=== PATIENT | male | born 1985 | race Caucasian/White ===

== ENCOUNTER 2019-04-09 10:26 | Emergency (ER) | payer SELFPAY | END 2019-04-09 12:15 | disposition left against medical advice (07) | LOC: ER 10:26 | DX: Z53.21 Procedure and treatment not carried out due to patient leaving prior to being seen by health care provider (principal) ==

== ENCOUNTER 2019-09-10 14:50 | Emergency (ER) | payer SELFPAY ==
[2019-09-10 15:11] VITALS: BP 124/75
--- NOTE | 2019-09-10 15:28 | ER Document Report ---
ED General - General Chief Complaint: Diarrhea Stated Complaint: DIARRHEA Notes: Patient is a 34-year-old white male with a recent past medical history of umbilical hernia repair with mesh about 4 weeks ago who presents with chief complaint of diarrhea. He states about 4 days ago he started having some loose brown stool. He reports about 2 episodes per day. Denies any sick contacts or recent travel. Denies any associated abdominal pain. Denies any vomiting or fever. No rash. No known sick contacts. Reports he has had follow-up with the surgeon status post hernia repair and was given all clear. He has been on no medications recently. Denies any known exposures to COVID-19. TRAVEL OUTSIDE OF THE [place] IN LAST 30 DAYS: No Past Medical History - Social History Smoking Status: Unknown if Ever Smoked Family History: Reviewed & Not Pertinent Patient has homicidal ideation: No - Immunizations Hx Diphtheria, Pertussis, Tetanus Vaccination: Yes Review of Systems - Review of Systems Gastrointestinal: Diarrhea -: Yes All other systems reviewed and negative Physical Exam - Vital signs Vitals: Temp Pulse Resp BP Pulse Ox 98.8 F 71 18 124/75 97 09/10/19 15:03 09/10/19 15:03 09/10/19 15:03 09/10/19 15:03 09/10/19 15:03 - General General appearance: Appears well, Alert In distress: None - Respiratory Respiratory status: No respiratory distress Chest status: Nontender Breath sounds: Normal Chest palpation: Normal - Cardiovascular Rhythm: Regular Heart sounds: Normal auscultation - Abdominal Inspection: Other - Supraumbilical incision, well-healed Distension: No distension Bowel sounds: Normal Tenderness: Nontender Organomegaly: No organomegaly - Extremities General upper extremity: Normal inspection, Nontender, Normal color, Normal ROM, Normal temperature General lower extremity: Normal inspection, Nontender, Normal color, Normal ROM, Normal temperature, Normal weight bearing. No: Thi's sign - Neurological Neuro grossly intact: Yes Cognition: Normal Orientation: AAOx4 Daryl Coma Scale Eye Opening: Spontaneous [place] Coma Scale Verbal: Oriented Daryl Coma Scale Motor: Obeys Commands Daryl Coma Scale Total: 15 Speech: Normal - Psychological Associated symptoms: Normal affect, Normal mood - Skin Skin Temperature: Warm Skin Moisture: Dry Skin Color: Normal Course - Re-evaluation Re-evalutation: 09/10/19 15:25 Patient is low risk for COVID-19. He has had no known exposures. His only symptom is diarrhea which could possibly be contributed to COVID-19. His diarrhea is currently manageable and mild. 2 episodes per day, non-watery. No recent travels or fevers. Patient will self monitor. He will continue to use preventative measures as discussed. Encouraged oral hydration. Counseled him regarding the importance of outpatient follow-up and advised to return here any ER immediately with any new, persistent or worsening symptoms. He verbalized understood and agreed. Patient requests note to give to his job stating he is low risk for COVID-19. Given his history and physical and lack of suspected contact, travel or other infectious symptom, this is appropriate and we will give him this note. - Vital Signs Vital signs: Temp Pulse Resp BP Pulse Ox 98.8 F 71 18 124/75 97 09/10/19 15:11 09/10/19 15:03 09/10/19 15:03 09/10/19 15:03 09/10/19 15:03 Discharge - Discharge Clinical Impression: Diarrhea Qualifiers: Diarrhea type: unspecified type Qualified Code(s): R19.7 - Diarrhea, unspecified Condition: Stable Disposition: HOME, SELF-CARE Instructions: COVID-19 Guidance for Persons Under Investigation, Diarrhea, Nonspecific ([facility]) Additional Instructions: You were evaluated in the emergency department today and found to be low risk for COVID-19. Please continue to self monitor and utilize preventative health measures such as frequent handwashing, mask wearing and social distancing. Please return here or any ER immediately with any new, persistent or worsening symptoms. Please follow-up with your regular doctor as needed.
== END 2019-09-10 15:33 | disposition home or self-care (01) ==
LOC: ER 14:50
DX: R19.7 Diarrhea, unspecified (principal)
CPT/HCPCS: 99283